=== PATIENT | male | born 1985 | race Caucasian/White ===

== ENCOUNTER 2018-08-15 22:50 | Day surgery (SDC) | payer BC, MEDICAID ==
[~2018-08-15 22:50] MED LIST: CIPR-326 PO; NO; NO ROUTINE MEDS; PER PO; PRO25 PO; TAM4 PO
--- NOTE | 2018-08-15 22:58 | ER Report ---
History and Physical Time Seen By MD: 22:57 HPI/ROS CHIEF COMPLAINT: Esophageal foreign body/obstruction HISTORY OF PRESENT ILLNESS: 33-year-old male presents ambulatory to the ER unable to pass his secretions. Patient was eating a steak quesadilla at [employer]. He reports he ate a large piece of steak quesadilla which became lodged in his esophagus. Patient reports 3 previous episodes of esophageal obstruction. They all ball resolved spontaneously. On the way to the hospital in the waiting room or is a were bringing him back to a room to be evaluated in the ER. Patient has a history of GERD. He's never had endoscopy or further evaluation. REVIEW OF SYSTEMS: Respiratory: No cough, no dyspnea. Cardiovascular: No chest pain, no palpitations. Gastrointestinal: As above Musculoskeletal: No back pain. Allergies: Coded Allergies: Penicillins (Verified Allergy, Mild, 06/09/10) Sulfa (Sulfonamides) (Verified Allergy, Mild, 06/09/10) Home Meds Reported Medications Atorvastatin Calcium (LIPITOR) 10 Mg Tablet, 1 TAB PO QDAY, TAB 08/15/18 Discontinued Reported Medications Tamsulosin Hcl (Flomax) 0.4 Mg Cap, 0.4 MG PO QDAY, #4 0 Refills 06/09/10 Promethazine Hcl (Phenergan) 25 Mg Tab, 25 MG PO Q4-6H PRN, #12 0 Refills 06/09/10 Oxycodone/Acetaminophen (OXYCODONE/ACETAMINOPHEN 5MG/325 MG) 5 Mg/325 Mg Tab, 1 TAB PO Q4-6H, #15 0 Refills 06/09/10 [No Routine Meds] No Conflict Check, 0 Refills 06/09/10 Reviewed Nurses Notes: Yes Old Medical Records Reviewed: Yes Hx Substance Use Disorder: No Hx Alcohol Use: No Constitutional Vital Sign - Last 24 Hours 08/15/18 08/15/18 08/15/18 08/15/18 22:58 23:05 23:20 23:35 Temp 97.5 Pulse 92 100 84 109 Resp 16 B/P (MAP) 160/112 Pulse Ox 91 93 93 95 O2 Delivery Room Air 08/15/18 23:50 Pulse 92 Pulse Ox 92 Physical Exam Vital signs stable, afebrile, pulse ox normal General Appearance: The patient is alert, has no immediate need for airway prote ction and no current signs of toxicity. Mild distress HEENT: Pupils equal and round no injection. Oropharynx without obvious foreign body or obstruction Respiratory: Chest is non tender, lungs are clear to auscultation. Cardiac: regular rate and rhythm Gastrointestinal: Abdomen is soft and non tender, no masses, bowel sounds normal. Musculoskeletal: Neck: Neck is supple and non tender. No palpable foreign body Extremities have full range of motion and are non tender. Skin: No rashes or lesions. DIFFERENTIAL DIAGNOSIS: After history and physical exam differential diagnosis was considered for esophageal foreign body, esophageal obstruction, esophageal spasm Medical Decision Making ED Course/Re-evaluation Clinical Indication for ER IV: Hydration, IV Access ED Course Patient was admitted to an examination room. H&P was done. The dental diagnoses was considered. On clinical examination. Patient has an obstructive esophagus. He is unable to swallow his secretions. He was eating a steak quesadilla. A large Steak is lodged in the lower aspect of his esophagus. Pat ient was treated with a peripheral IV and glucagon and IV fluid hydration without success. General surgery was contacted come in to perform endoscopy and remove the obstruction. 08/15/2018 11:52:47 pm case discussed with Dr. Siu general surgery on- call, who will come evaluate the patient for Endoscopy Decision to Disposition Date: Aug 15, 2018 Decision to Disposition Time: 23:12 Depart Departure Latest Vital Signs Vital Signs Date Time Temp Pulse Resp B/P (MAP) Pulse Ox O2 Delivery O2 Flow Rate FiO2 08/15/18 23:50 92 92 08/15/18 22:58 97.5 16 160/112 Room Air Impression: Primary Impression: Esophageal obstruction Additional Impression: Esophageal foreign body Condition: Improved Disposition: ADMIT FROM ER TO OR Referrals: BEN MANN DO (PCP) Problem Qualifiers Additional Impression: Esophageal foreign body Encounter type: initial encounter Qualified Codes: T18.108A - Unspecified foreign body in esophagus causing other injury, initial encounter TIFFANY SCHMITZ DO Aug 15, 2018 22:58
[2018-08-15] MEDS ORDERED: ATOR10TA24 PO (23:01)
[2018-08-15] MEDS ORDERED: NS(*) 0.9% 1000 ML BAG 1,000 ML IV ONE (23:10)
[2018-08-15] MEDS ORDERED: GLUCAGON 1 MG KIT IVP ONE (23:10)
[2018-08-15] MEDS ORDERED: NORMOSOL R SOLN(*) 1000 ML BAG 1,000 ML IV ONE (23:55)
[2018-08-16 00:01] VITALS: BP 140/93
[2018-08-16] MEDS ORDERED: PROPOFOL EMUL(*) 10MG/ML 20 ML 20 ML ONE ×2 (00:06→00:39)
[2018-08-16] MEDS ORDERED: ONDANSETRON 4 MG/2 ML VIAL ONE (00:06)
[2018-08-16] MEDS ORDERED: LIDOCAINE MPF 1% 5 ML VIAL ONE (00:06)
[2018-08-16] MEDS ORDERED: DEXAMETHASONE SOD 4 MG/ML VIAL ONE (00:07)
[2018-08-16] MEDS ORDERED: SUCCINYLCHOL CHL 200MG/10ML VL ONE (00:09)
[2018-08-16] MEDS ORDERED: fentaNYL CITR 100 MCG/2 ML AMP ONE (00:10)
--- NOTE | 2018-08-16 00:29 | Gen Surgery History & Physical ---
History of Present Illness Chief Complaint Esophageal food obstruction History of Present Illness Mr. Brand is a 33yo male who presents unable to swallow his saliva after eating a steak quaesadilla about 7pm. He has had esophageal food impactions on 3 previous occasions which resolved spontaneously. He sought consultation with a PCP who did not recommend any further evaluation. He does have clinical symptoms of GERD chronically. History Problems: (1) Dyslipidemia Status: Chronic (2) GERD with stricture Status: Chronic Home Meds Reported Medications Atorvastatin Calcium (LIPITOR) 10 Mg Tablet, 1 TAB PO QDAY, TAB 08/15/18 Discontinued Reported Medications Tamsulosin Hcl (Flomax) 0.4 Mg Cap, 0.4 MG PO QDAY, #4 0 Refills 06/09/10 Promethazine Hcl (Phenergan) 25 Mg Tab, 25 MG PO Q4-6H PRN, #12 0 Refills 06/09/10 Oxycodone/Acetaminophen (OXYCODONE/ACETAMINOPHEN 5MG/325 MG) 5 Mg/325 Mg Tab, 1 TAB PO Q4-6H, #15 0 Refills 06/09/10 [No Routine Meds] No Conflict Check, 0 Refills 06/09/10 Allergies: Coded Allergies: Penicillins (Verified Allergy, Mild, 06/09/10) Sulfa (Sulfonamides) (Verified Allergy, Mild, 06/09/10) Review of Systems All Systems Reviewed/Normal: Yes Exam General Appearance: Alert, Awake Neuro: No Gross deficits Eyes: PERRLA ENT: Normal Cardiovascular: Normal Rhythm & Peripheral Pulses Respiratory: No Respiratory Distress GI: Abd Soft and Non-Tender Musculoskeletal: No Weakness/Pain Extremities: Soft and Non Tender Psych: Alert & Oriented X3, Appropriate Mood & Affect Assessment and Plan Problems: (1) Esophageal foreign body Status: Acute Assessment & Plan: Mr. Brand clinically has a piece of steak stuck in his esophagus. Attempts at conservative management over the last several hours has been unsuccessful. I reviewed the indication for removal along with the risks and benefits. I specifically mentioned the risk of esophageal perforation and bleeding. We also discussed the need for follow-up when he returns home to [place] with a textile science technician with an Upper GI and EGD. He expressed his understanding and signed consent to proceed. Time Spent: < 30 min Venous Thromboembolism VTE Risk Physician Assess for VTE Risk: Yes Patient's VTE Risk: Low VTE Diagnostic Test 2 Days Prior to Admit: No Antithrombotics Is Pt On Any Antithrombotics?: No Problem Qualifiers (1) Esophageal foreign body: Encounter type: initial encounter Qualified Codes: T18.108A - Unspecified foreign body in esophagus causing other injury, initial encounter BINTA MOMIN MD Aug 16, 2018 00:29
--- NOTE | 2018-08-16 01:27 | Post Operative Progress Note ---
Post Operative Progress Note Date: Aug 16, 2018 Time: 01:23 Surgeon: Binta Siu MD, FACS Informatics Educator: None Anesthesia: GETA Pre-Op Diagnosis: Esophageal Food Impaction Post-Op Diagnosis: Safe - confirmed Findings: large piece of steak stuck at GEJ. GEJ at 40cm. Procedure(s): Esophagoscopy with foreign body removal using snare Description Mr. Brand was taken to the OR. Intubated using RSI. Time-out performed. Scope passed easily into the esophagus. Food bolus identified at the GEJ. A medium snare was used to dislodge it. Three larger pieces were removed using the snare with the remainder pushed distally into the stomach. No esophageal erosion or bleeding. No obvious stricture identified. Specimen Removed:(May be N/A): Food - not to pathology Complications: None Fluids: 700ml BINTA SIU MD Aug 16, 2018 01:27
--- NOTE | 2018-08-16 01:30 | Hospitalist Depart ---
Discharge Summary Reason for Hosp/Final Diag: (1) Esophageal foreign body Status: Resolved Hospital Course & Plan: Mr. Brand clinically has a piece of steak stuck in his esophagus. Attempts at conservative management over the last several hours has been unsuccessful. I reviewed the indication for removal along with the risks and benefits. I specifically mentioned the risk of esophageal perforation and bleeding. We also discussed the need for follow-up when he returns home to [place] with a [employer] dynamics manager architect with an Upper GI and EGD. He expressed his understanding and signed consent to proceed. Removed successfully in the OR. See operative note for details. Departure Weight (Pounds): 210 Condition: Improved Discharge: Home Discharge Code Status: Full Code Discharge Instructions Home Meds Reported Medications Atorvastatin Calcium (LIPITOR) 10 Mg Tablet, 1 TAB PO QDAY, TAB 08/15/18 Discontinued Reported Medications Tamsulosin Hcl (Flomax) 0.4 Mg Cap, 0.4 MG PO QDAY, #4 0 Refills 06/09/10 Promethazine Hcl (Phenergan) 25 Mg Tab, 25 MG PO Q4-6H PRN, #12 0 Refills 06/09/10 Oxycodone/Acetaminophen (OXYCODONE/ACETAMINOPHEN 5MG/325 MG) 5 Mg/325 Mg Tab, 1 TAB PO Q4-6H, #15 0 Refills 06/09/10 [No Routine Meds] No Conflict Check, 0 Refills 06/09/10 Diet: Regular Activity: As Tolerated Special Instructions: advance diet slowly from liquid to solid as tolerated Venous Thromboembolism Antithrombotics Is Pt On Any Antithrombotics?: No Problem Qualifiers (1) Esophageal foreign body: Encounter type: initial encounter Qualified Codes: T18.108A - Unspecified foreign body in esophagus causing other injury, initial encounter BINTA MOMIN MD Aug 16, 2018 01:30
== END 2018-08-16 02:15 | disposition home or self-care (01) ==
LOC: ER 23:07 → OR 23:52
PROVIDERS: ATTEND Surgery
DX: T18.128A Food in esophagus causing other injury, initial encounter (principal)
CPT/HCPCS: 43247; 96374; 99284; J0330; J1100; J1610; J2001; J2405; J2704; J3010; J7030